=== PATIENT | male | born 1960 | race Caucasian/White ===

== ENCOUNTER 2024-09-10 23:00 | Outpatient (CLI) | payer BC, SELFPAY | END 2024-09-10 23:01 | disposition home or self-care (01) | PROVIDERS: Visit Provider Family Medicine | DX: S69.90XA Unspecified injury of unspecified wrist, hand and finger(s), initial encounter (principal); Y00.XXXA Assault by blunt object, initial encounter; Y92.009 Unspecified place in unspecified non-institutional (private) residence as the place of occurrence of the external cause | CPT/HCPCS: A0998 ==